=== PATIENT | male | born 1985 | race African-American/Black ===

== ENCOUNTER 2024-05-12 00:18 | Emergency (ER) | payer MEDICAID ==
[~2024-05-12] VITALS: Ht 180.3 cm; Wt 72.0 kg
[2024-05-12 00:32] VITALS: BP 134/86; PULSE 72; RESP 18; TEMP 97.9; O2SAT 100
== END 2024-05-12 00:58 | disposition left against medical advice (07) ==
LOC: ER 00:18
DX: M54.9 Dorsalgia, unspecified (principal); F20.9 Schizophrenia, unspecified; F12.90 Cannabis use, unspecified, uncomplicated
CPT/HCPCS: 99283